=== PATIENT | male | born 2000 | race Caucasian/White ===

== ENCOUNTER 2022-04-12 18:59 | Emergency (ER) | payer BC ==
[~2022-04-12] VITALS: Ht 172.7 cm; Wt 75.0 kg
[2022-04-12 19:54] VITALS: TEMP 98.1
[2022-04-12 21:49] VITALS: BP 128/82; PULSE 93
== END 2022-04-12 21:54 | disposition home or self-care (01) ==
LOC: COL.ER 18:59
DX: S61.011A Laceration without foreign body of right thumb without damage to nail, initial encounter (principal); W26.8XXA Contact with other sharp object(s), not elsewhere classified, initial encounter